=== PATIENT | female | born 1995 | race Caucasian/White ===

== ENCOUNTER 2016-08-04 20:08 | Emergency (ER) | payer OTHER ==
[2016-08-04] MEDS ORDERED: KETOROLAC 60 MG/2 ML VIAL IM STA (20:21)
[2016-08-04] MEDS ORDERED: KETOROLAC 60 MG/2 ML VIAL ONE (20:34)
[2016-08-04] MEDS ORDERED: HYDROcod/ACETAM 5/325 MG TABLET PO STA (21:26)
[2016-08-04] MEDS ORDERED: HYDROcod/ACETAM 5/325 MG TABLET ONE (21:26)
== END 2016-08-04 21:43 | disposition home or self-care (01) ==
DX: S83.92XA Sprain of unspecified site of left knee, initial encounter (principal); M25.572 Pain in left ankle and joints of left foot; X50.9XXA Other and unspecified overexertion or strenuous movements or postures, initial encounter; Y93.02 Activity, running; Y92.414 Local residential or business street as the place of occurrence of the external cause; Y99.8 Other external cause status; F17.200 Nicotine dependence, unspecified, uncomplicated
CPT/HCPCS: 73564; 73590; 73610; 73630; 96372; 99283; A9270

== ENCOUNTER 2016-09-06 15:15 | Outpatient (CLI) | payer OTHER | END 2016-09-06 15:16 | disposition EMS.NT | DX: M25.531 Pain in right wrist (principal); V43.52XA Car driver injured in collision with other type car in traffic accident, initial encounter; Y92.414 Local residential or business street as the place of occurrence of the external cause ==

== ENCOUNTER 2016-09-28 15:20 | Emergency (ER) | payer OTHER ==
--- NOTE | 2016-09-28 16:23 | ED Physician Documentation ---
History of Present Illness - Stated complaint Stated Complaint: LT KNEE PX - Chief complaint Chief Complaint: Ext Problem - Additonal information Additional information: hx from pt 21 female injured her knee approx 2 m ago was dx MCL injury wore a brace for a while felt better dced the brace ran a marathon then today then stood up and felt a pop and pain lateral and ant and cannot walk without a limp denies preg Review of Systems : denies: Now EGA Musculoskeletal: reports: Pain with weight bearing PD PAST MEDICAL HISTORY - Past Medical History Cardiovascular: None Respiratory: None Neuro: None Endocrine/Autoimmune: None GI: None : None Psych: Panic attacks Musculoskeletal: Scoliosis - Past Surgical History Past Surgical History: No - Present Medications Home Medications: Ambulatory Orders Medication Instructions Recorded Confirmed Sumatriptan [Imitrex] 25 mg PO BID PRN #10 tablet 11/08/15 09/28/16 - Allergies Allergies/Adverse Reactions: Allergies Allergy/AdvReac Type Severity Reaction Status Date / Time azithromycin Allergy Nausea Verified 09/28/16 15:26 diazepam [From Valium] AdvReac Unknown Verified 09/28/16 15:26 - Social History Does the pt smoke?: Yes Smoking Status: Current some day smoker Does the pt drink ETOH?: Yes Does the pt have substance abuse?: No - Immunizations Immunizations are current?: Yes - POLST Patient has POLST: No PD ED PE NORMAL - Vitals Vital signs reviewed: Yes - Extremities Extremities: Other (L knee, small swelling, no MCL LCL laxity, pain s laxity ACL , pain no pop with meniscus testing MSV intact) Results - Vitals Vitals: Vital Signs - 24 hr 09/28/16 15:22 Temperature 36.4 C L Heart Rate 81 Respiratory 18 Rate Blood Pressure 134/91 H O2 Saturation 100 Oxygen O2 Source Room air PD MEDICAL DECISION MAKING - ED course ED course: explained xrays unliekly to be helpful gave pt articulated brace and referred to ortho for further eval and management and consideration of MRI Departure - Departure Disposition: 01 Home, Self Care Clinical Impression: Knee internal derangement Qualifiers: Laterality: left Qualified Code(s): M23.92 - Unspecified internal derangement of left knee Condition: Good Instructions: ED Meniscal Injury Knee Poss Follow-Up: [facility] [Provider Group] Comments: Recommend motrin and tylenol for the pain. Ice and elevation as needed for the swelling Wear the brace except when sleeping Follow up with orthopedics And follow up with your PMD about your blood pressure - it is high today
[2016-09-28] MEDS ORDERED: IBUPROFEN 400 MG TABLET PO ONE (16:38)
[2016-09-28] MEDS ORDERED: ACETAMINOPHEN 325 MG TABLET PO STA (16:38)
[2016-09-28] MEDS ORDERED: IBUPROFEN 400 MG TABLET PO STA (16:38)
[2016-09-28] MEDS ORDERED: ACETAMINOPHEN 325 MG TABLET PO ONE (16:39)
[2016-09-28 16:43] VITALS: BP 128/88
== END 2016-09-28 16:43 | disposition home or self-care (01) ==
LOC: ED 15:20
DX: M23.92 Unspecified internal derangement of left knee (principal); R03.0 Elevated blood-pressure reading, without diagnosis of hypertension; F17.200 Nicotine dependence, unspecified, uncomplicated
CPT/HCPCS: 99283; A9270